=== PATIENT | female | born 1945 | race Caucasian/White ===

== ENCOUNTER 2021-03-22 10:04 | Emergency (ER) | payer MEDICARE, OTHER ==
[~2021-03-22] VITALS: Ht 162.6 cm; Wt 72.6 kg
[2021-03-22] MEDS ORDERED: SYNT112T2 PO (10:21)
[2021-03-22] MEDS ORDERED: VITA200031 PO (10:21)
[2021-03-22] MEDS ORDERED: IBUP-1114 PO (10:21)
[2021-03-22] MEDS ORDERED: ALLE180T33 PO (10:21)
[2021-03-22 11:22] LABS: APPEARANCE, URINE CLEAR (CLEAR); BACTERIA, URINE AUTO NEGATIVE (NEGATIVE); BILIRUBIN, URINE AUTO NEGATIVE (NEGATIVE); BLOOD, URINE BLOOD 1+ (NEGATIVE); COLOR, URINE STRAW (YELLOW); GLUCOSE, URINE (UA) AUTO NEGATIVE (NEGATIVE); KETONE, URINE AUTO NEGATIVE (NEGATIVE); LEUKOCYTE ESTERASE, URINE AUTO NEGATIVE (NEGATIVE); MUCUS, URINE SMALL (NEGATIVE); NITRITE, URINE AUTO NEGATIVE (NEGATIVE); PROTEIN, URINE AUTO NEGATIVE (NEGATIVE); RBC, URINE AUTO 2 /HPF (0-3); SPECIFIC GRAVITY URINE AUTO 1.006 (1.002-1.035); SQUAMOUS EPITHELIAL CELL UR AU 0 /HPF (0-6); UROBILINOGEN, URINE AUTO 0.2 mg/dL (0.0-2.0); WBC, URINE AUTO 1 /HPF (0-3)
[2021-03-22 12:00] LABS: BASO # 0.1 10^3/uL (0.0-0.2); BASO % 0.7 % (0.0-1.0); EOS # 0.2 10^3/uL (0.0-0.5); EOS % 2.1 % (0.0-3.0); HEMATOCRIT 45.1 % (36.0-47.0); HEMOGLOBIN 14.3 g/dl (12.0-15.5); LYMPH # 2.1 10^3/uL (1.5-5.0); LYMPH % 28.9 % (24.0-44.0); MEAN CORPUSCULAR HEMOGLOBIN 29.2 pg (27.0-33.0); MEAN CORPUSCULAR HGB CONC 31.7 g/dl (32.0-36.5); MEAN CORPUSCULAR VOLUME 92.2 fl (80.0-96.0); MONO # 0.6 10^3/uL (0.0-0.8); MONO % 7.8 % (2.0-8.0); NEUTROPHILS # 4.3 10^3/uL (1.5-8.5); NEUTROPHILS % 60.4 % (36.0-66.0); PLATELET COUNT, AUTOMATED 209 10^3/uL (150-450); RED BLOOD COUNT 4.89 10^6/uL (4.00-5.40); WHITE BLOOD COUNT 7.1 10^3/uL (4.0-10.0)
[2021-03-22 12:22] LABS: ALBUMIN 3.8 GM/DL (3.2-5.2); ALT/SGPT 25 U/L (12-78); BILIRUBIN,DIRECT 0.2 MG/DL (0.0-0.2); BILIRUBIN,TOTAL 0.9 MG/DL (0.2-1.0); BLOOD UREA NITROGEN 14 MG/DL (7-18); CALCIUM LEVEL 9.2 MG/DL (8.8-10.2); CARBON DIOXIDE LEVEL 27 MEQ/L (21-32); CHLORIDE LEVEL 111 MEQ/L (98-107); CREATININE FOR GFR 0.68 MG/DL (0.55-1.30); GLOMERULAR FILTRATION RATE > 60.0 (>39); GLUCOSE, FASTING 95 MG/DL (70-100); LIPASE 84 U/L (73-393); POTASSIUM SERUM 4.1 MEQ/L (3.5-5.1); SODIUM LEVEL 144 MEQ/L (136-145)
[2021-03-22 15:00] VITALS: BP 159/74
[2021-03-22] MEDS ORDERED: KETO10TAB PO (15:59)
[2021-03-22] MEDS ORDERED: PYRI1TAB5 PO (15:59)
== END 2021-03-22 16:16 | disposition home or self-care (01) ==
LOC: M ED 10:04
DX: N20.0 Calculus of kidney (principal); Z79.890 Hormone replacement therapy; Z79.899 Other long term (current) drug therapy; Z88.0 Allergy status to penicillin; Z88.1 Allergy status to other antibiotic agents; Z88.8 Allergy status to other drugs, medicaments and biological substances; Z88.2 Allergy status to sulfonamides; Z87.442 Personal history of urinary calculi; Z86.39 Personal history of other endocrine, nutritional and metabolic disease

== ENCOUNTER 2021-10-13 19:11 | Emergency (ER) | payer MEDICARE ==
[~2021-10-13] VITALS: Ht 162.6 cm; Wt 72.2 kg
[~2021-10-13 19:11] MED LIST: ALLE180T33 PO; IBUP-1114 PO; KETO10TAB PO; PYRI1TAB5 PO; SYNT112T2 PO; VITA200031 PO
[2021-10-13] MEDS ORDERED: CYCL-707 (19:19)
[2021-10-13] MEDS ORDERED: NS 1,000 ML IV ONE (19:50)
[2021-10-13] MEDS ORDERED: KETOROLAC 30 MG/ML 1ML VIAL IV ONE (20:00)
[2021-10-13 20:59] LABS: BASO % 0.4 % (0.0-1.0); EOS # 0.3 10^3/uL (0.0-0.5); EOS % 3.1 % (0.0-3.0); HEMATOCRIT 41.9 % (36.0-47.0); HEMOGLOBIN 13.6 g/dl (12.0-15.5); LYMPH # 2.1 10^3/uL (1.5-5.0); MEAN CORPUSCULAR HEMOGLOBIN 29.8 pg (27.0-33.0); MEAN CORPUSCULAR HGB CONC 32.5 g/dl (32.0-36.5); MEAN CORPUSCULAR VOLUME 91.7 fl (80.0-96.0); MONO # 0.7 10^3/uL (0.0-0.8); MONO % 8.2 % (2.0-8.0); NEUTROPHILS # 5.9 10^3/uL (1.5-8.5); PLATELET COUNT, AUTOMATED 201 10^3/uL (150-450); RED BLOOD COUNT 4.57 10^6/uL (4.00-5.40); WHITE BLOOD COUNT 9.1 10^3/uL (4.0-10.0)
[2021-10-13 21:00] LABS: ALBUMIN 3.8 GM/DL (3.2-5.2); BILIRUBIN,DIRECT 0.1 MG/DL (0.0-0.2); BILIRUBIN,TOTAL 0.3 MG/DL (0.2-1.0); TOTAL PROTEIN 6.5 GM/DL (6.4-8.2)
[2021-10-13] MEDS ORDERED: CIPROFLOXACIN 500MG TABLET PO ONE (22:00)
[2021-10-13] MEDS ORDERED: NORCO 5/325MG TABLET (HOME DOSE PACK) PO ONE (22:00)
[2021-10-13] MEDS ORDERED: TAMSULOSIN 0.4 MG CAP PO ONE (22:00)
[2021-10-13] MEDS ORDERED: HYDR-3713 PO (22:04)
[2021-10-13] MEDS ORDERED: CIPR-249 PO (22:04)
[2021-10-13] MEDS ORDERED: FLOM0.4C39 PO (22:04)
[2021-10-13 22:22] VITALS: BP 129/81
== END 2021-10-13 22:25 | disposition home or self-care (01) ==
LOC: M ED 19:11
DX: N20.1 Calculus of ureter (principal); K57.30 Diverticulosis of large intestine without perforation or abscess without bleeding; Z88.0 Allergy status to penicillin; Z88.1 Allergy status to other antibiotic agents; Z88.2 Allergy status to sulfonamides; Z88.8 Allergy status to other drugs, medicaments and biological substances
CPT/HCPCS: 74176; 80047; 80076; 81001; 83690; 85025; 87086; 96361; 96374; 99284; J1885

== ENCOUNTER 2021-10-31 09:16 | Observation (INO) | payer MEDICARE ==
[~2021-10-31] VITALS: Ht 162.6 cm; Wt 71.6 kg
[2021-10-31] MEDS: KCL 40MEQ IN D5/0.45NS 1000ML 1,000 ML IV SCH ×2 (02:51→18:34)
[~2021-10-31 09:16] MED LIST changes: -ACET1TAB55 PO; -CIPR250T3 PO; -GNP250TA9 PO; -OXYB5TAB10 PO; -OXYC1TAB23 PO; -TAMS1CAP17 PO
[2021-10-31] MEDS ORDERED: OXYC1TAB23 PO (09:44)
[2021-10-31 09:59] LABS: BASO % 0.5 % (0.0-1.0); EOS # 0.1 10^3/uL (0.0-0.5); EOS % 1.8 % (0.0-3.0); HEMATOCRIT 42.1 % (36.0-47.0); HEMOGLOBIN 13.8 g/dl (12.0-15.5); LYMPH # 2.4 10^3/uL (1.5-5.0); LYMPH % 30.6 % (24.0-44.0); MEAN CORPUSCULAR HEMOGLOBIN 29.4 pg (27.0-33.0); MEAN CORPUSCULAR HGB CONC 32.8 g/dl (32.0-36.5); MEAN CORPUSCULAR VOLUME 89.8 fl (80.0-96.0); MONO # 0.6 10^3/uL (0.0-0.8); MONO % 7.5 % (2.0-8.0); NEUTROPHILS # 4.6 10^3/uL (1.5-8.5); NEUTROPHILS % 59.1 % (36.0-66.0); PLATELET COUNT, AUTOMATED 238 10^3/uL (150-450); RED BLOOD COUNT 4.69 10^6/uL (4.00-5.40); WHITE BLOOD COUNT 7.7 10^3/uL (4.0-10.0)
[2021-10-31 10:34] LABS: BLOOD UREA NITROGEN 20 MG/DL (7-18); CALCIUM LEVEL 9.7 MG/DL (8.8-10.2); CARBON DIOXIDE LEVEL 27 MEQ/L (21-32); CHLORIDE LEVEL 104 MEQ/L (98-107); GLOMERULAR FILTRATION RATE > 60.0 (>39); GLUCOSE, FASTING 105 MG/DL (70-100); POTASSIUM SERUM 3.1 MEQ/L (3.5-5.1); SODIUM LEVEL 139 MEQ/L (136-145)
[2021-10-31] MEDS ORDERED: NS 1,000 ML IV SCH ×2 (11:25→12:00)
[2021-10-31] MEDS ORDERED: KETOROLAC 30 MG/ML 1ML VIAL IV ONE (11:25)
[2021-10-31] MEDS ORDERED: PERCOCET 5MG/325MG TAB PO PRN (12:00)
[2021-10-31] MEDS ORDERED: ACETAMINOPHEN TAB 650MG DOSE (2X325MG) PO PRN (12:00)
[2021-10-31] MEDS ORDERED: KETOROLAC 30 MG/ML 1ML VIAL IV PRN (12:00)
[2021-10-31 12:09] LABS: RSV AMPLIFICATION NEGATIVE (NEGATIVE)
[2021-10-31] MEDS ORDERED: MORPHINE 4 MG/ML 1ML VIAL/SYRINGE IV PRN (12:45)
[2021-10-31] MEDS ORDERED: PYRI1TAB5 PO (13:00)
[2021-10-31] MEDS ORDERED: GNP250TA9 PO (13:00)
[2021-10-31] MEDS ORDERED: ACET1TAB55 PO (13:00)
[2021-10-31] MEDS ORDERED: TAMS1CAP17 PO (13:00)
[2021-10-31] MEDS ORDERED: HOME MED LIST COMPLETE! XX SCH (13:00)
[2021-10-31] MEDS ORDERED: CIPROFLOXACIN 400 MG in IV 1 EA IV ONE (14:00)
[2021-10-31] MEDS ORDERED: ISOVUE-300 61% 50ML VIAL As Ordered ONE (16:36)
[2021-10-31] MEDS ORDERED: LIDOCAINE 2% INJ 100 MG/5 ML SYRINGE As Ordered ONE (16:38)
[2021-10-31] MEDS ORDERED: propofoL 200 MG/20 ML VIAL As Ordered ONE (16:38)
[2021-10-31] MEDS ORDERED: MIDAZOLAM INJ 2MG/2ML VIAL (J2250 PER 1MG) As Ordered ONE (16:39)
[2021-10-31] MEDS ORDERED: fentaNYL 100 MCG/2 ML INJECTION As Ordered ONE (16:39)
[2021-10-31] MEDS ORDERED: HYDROMORPHONE HCL 0.5 MG/ 0.5 ML SYRINGE (J1170 PER 1) IV PRN (17:35)
[2021-10-31] MEDS ORDERED: oxyCODONE 5MG TAB PO PRN (17:35)
[2021-10-31] MEDS ORDERED: ONDANSETRON 4MG 2ML VIAL IV PRN (17:35)
[2021-10-31] MEDS ORDERED: fentaNYL 100 MCG/2 ML INJECTION IV PRN (17:35)
[2021-10-31] MEDS ORDERED: LR 1,000 ML IV SCH (17:35)
[2021-10-31 18:30] VITALS: BP 118/67
[2021-10-31 19:55] VITALS: BP 117/65
[2021-10-31 21:05] VITALS: BP 111/59
[2021-10-31 22:07] VITALS: BP 98/52
[2021-10-31 23:03] VITALS: BP 119/52
[2021-11-01 02:00] VITALS: BP 121/65
[2021-11-01 06:00] VITALS: BP 121/60
[2021-11-01 06:40] LABS: HEMATOCRIT 40.5 % (36.0-47.0); HEMOGLOBIN 12.7 g/dl (12.0-15.5); MEAN CORPUSCULAR HGB CONC 31.4 g/dl (32.0-36.5); MEAN CORPUSCULAR VOLUME 92.5 fl (80.0-96.0); PLATELET COUNT, AUTOMATED 200 10^3/uL (150-450); RED BLOOD COUNT 4.38 10^6/uL (4.00-5.40); WHITE BLOOD COUNT 6.2 10^3/uL (4.0-10.0)
[2021-11-01 07:02] LABS: BLOOD UREA NITROGEN 15 MG/DL (7-18); CALCIUM LEVEL 8.6 MG/DL (8.8-10.2); CARBON DIOXIDE LEVEL 30 MEQ/L (21-32); CHLORIDE LEVEL 108 MEQ/L (98-107); CREATININE FOR GFR 0.76 MG/DL (0.55-1.30); GLOMERULAR FILTRATION RATE > 60.0 (>39); GLUCOSE, FASTING 113 MG/DL (70-100); POTASSIUM SERUM 3.7 MEQ/L (3.5-5.1); SODIUM LEVEL 141 MEQ/L (136-145)
[2021-11-01] MEDS ORDERED: LEVOTHYROXINE 112MCG TABLET (0.112MG) PO SCH (09:00)
[2021-11-01] MEDS: KCL 40MEQ IN D5/0.45NS 1000ML 1,000 ML IV SCH (09:26)
[2021-11-01] MEDS ORDERED: CIPR250T3 PO (09:41)
[2021-11-01] MEDS ORDERED: PYRI1TAB5 PO (09:41)
[2021-11-01] MEDS ORDERED: OXYB5TAB10 PO (09:41)
[2021-11-01 10:00] VITALS: BP 133/62
[2021-11-07 12:08] LABS: CA Oxalate Dihy 20 % (.); Ca Ox Monohydrate 80 % (.); Size 6x4 mm (.)
== END 2021-11-01 12:30 | disposition home or self-care (01) ==
LOC: M ED 09:16 → M ED INP 09:17 → M MS5PR 18:25
PROVIDERS: ADMIT Internal Medicine; ATTEND Internal Medicine
DX: N20.1 Calculus of ureter (principal); E87.6 Hypokalemia; E03.9 Hypothyroidism, unspecified; Z79.899 Other long term (current) drug therapy; Z88.0 Allergy status to penicillin; Z88.2 Allergy status to sulfonamides; Z88.1 Allergy status to other antibiotic agents
CPT/HCPCS: 36415; 52356; 71045; 74420; 80048; 82365; 85025; 85027; 87631; 93005; 96365; 96375; 99284; C1769; C2617; G0378; J0744; J1885; J2250; J3010; Q9967

== ENCOUNTER → 2021-10-31 | Outpatient (REF) | payer MEDICARE ==
[~2021-10-31] MED LIST changes: +ACET1TAB55 PO; +CIPR-249 PO; +CIPR250T3 PO; +CYCL-707; +FLOM0.4C39 PO; +GNP250TA9 PO; +HYDR-3713 PO; +OXYB5TAB10 PO; +OXYC1TAB23 PO; +TAMS1CAP17 PO
[2021-10-31 13:42] LABS: APPEARANCE, URINE MANUAL CLEAR (CLEAR); BILIRUBIN, URINE MANUAL OBSCURED (NEGATIVE); BLOOD URINE MANUAL POSITIVE (NEGATIVE); COLOR, URINE MANUAL ORANGE (YELLOW); GLUCOSE, URINE (UA) MANUAL OBSCURED mg/dL (NEGATIVE); KETONE, URINE MANUAL OBSCURED mg/dL (NEGATIVE); LEUKOCYTE ESTERASE, URINE MAN NEGATIVE (NEGATIVE); NITRITE, URINE MANUAL OBSCURED (NEGATIVE); PROTEIN, URINE MANUAL OBSCURED mg/dL (NEGATIVE); SPECIFIC GRAVITY,URINE MANUAL 1.015 (1.002-1.035); UROBILINOGEN, URINE MANUAL OBSCURED mg/dl (NORMAL)
[2021-10-31 13:55] LABS: SQUAMOUS EPITHELIAL CELL URINE SMALL AMOUNT /hpf (SMALL AMT); TRANSITIONAL EPI CELLS, URINE SMALL AMOUNT /hpf
[2021-10-31 13:56] LABS: BACTERIA, URINE SMALL AMOUNT; HYALINE CAST, URINE NONE SEEN /lpf (0-1); MUCUS, URINE SMALL AMOUNT (NEGATIVE)
== END ==
LOC: M SMT 12:50
PROVIDERS: ATTEND Urology
DX: N20.1 Calculus of ureter (principal)

== ENCOUNTER → 2022-06-03 | Outpatient (CLI) | payer MEDICARE ==
[~2022-06-03] MED LIST changes: +ACET1TAB55 PO; +CIPR250T3 PO; +GNP250TA9 PO; +OXYB5TAB10 PO; +OXYC1TAB23 PO; +TAMS1CAP17 PO
== END ==
LOC: M WHC 12:43
PROVIDERS: ATTEND Internal Medicine
DX: R22.42 Localized swelling, mass and lump, left lower limb (principal)

== ENCOUNTER → 2022-08-04 | Outpatient (CLI) | payer MEDICARE | LOC: M WHC 10:12 | PROVIDERS: ATTEND Internal Medicine | DX: Z12.31 Encounter for screening mammogram for malignant neoplasm of breast (principal) ==